=== PATIENT | male | born 1950 | race Caucasian/White ===

== ENCOUNTER 2016-07-20 12:42 | Emergency (ER) | payer OTHER ==
--- NOTE | 2016-07-20 12:51 | ED Physician Documentation ---
Hand Injury - HISTORIAN Historian: patient, spouse - HPI Stated Complaint: Hurt R hand Chief Complaint: Hand Injury Additional Information: 66 y/o R handed male M presents with R hand injury. Was pulling on a dent puller and hit a metal tool on the car he was working on. About .5-1 inch of the piece stuck in his hand - full piece came out. Not in pain. Minimal numbness along lateral side of pinky. Onset: just prior to arrival Where: home Severity: mild Context: laceration Location of Injury: R hand - ROS CONST: no problems - PAST HX Past History: Rt handed, other (Peripheral neuropathy; Prostate cancer; Nephrolithiasis) Immunizations: tetanus (Received 7 years ago), UTD Allergies/Adverse Reactions: Allergies Allergy/AdvReac Type Severity Reaction Status Date / Time No Known Allergies Allergy Unverified 07/20/16 12:57 Home Medications: Ambulatory Orders Medication Instructions Recorded Allopurinol [Zyloprim] 07/20/16 Aspirin [Ritu] 81 mg PO DAILY 07/20/16 Cholecalciferol (Vitamin D3) 07/20/16 [Vitamin D3] Fluticasone Propionate [Flonase 1 spray NS 07/20/16 Nasal [place]] Gabapentin [Neurontin] 100 mg PO TID 07/20/16 Quinapril HCl [Accupril] 40 mg PO 07/20/16 - SOCIAL HX Smoking History: non-smoker - FAMILY HX Family History: none Procedures Wound Location: other (R hand) Wound's Depth, Shape: other (circular puncture wound) Wound Explored: clean Irrigated w/ Saline (ccs): 30 Betadine Prep?: No (Hexadine used) Anesthesia: 1% Lidocaine Wound Repaired With: sutures (1 5-0 Nylon) Suture Size/Type: 5:0 Number of Sutures: 1 Hand Injury Physical Exam - Exam General Appearance: no acute distress Hand: other (Wound present on lateral side of R hand - about 0.75cm in length). No: limited ROM Neuro: sensation nml, motor nml Discharge Clincal Impression: Open wound, hand Qualifiers: Encounter type: initial encounter Laterality: right Qualified Code(s): S61.401A - Unspecified open wound of right hand, initial encounter Home Medications: Ambulatory Orders Allopurinol [Zyloprim] 07/20/16 Aspirin [Ritu] 81 mg PO DAILY 07/20/16 Cholecalciferol (Vitamin D3) [Vitamin D3] 07/20/16 Fluticasone Propionate [Flonase Nasal [place]] 1 spray NS 07/20/16 Gabapentin [Neurontin] 100 mg PO TID 07/20/16 Quinapril HCl [Accupril] 40 mg PO 07/20/16 Comments: Keep wound clean and dry. Dress with triple antibiotic ointment. Remove suture in 5-7 days. Condition: Stable Disposition: 01 HOME, SELF-CARE Decision to Admit: NO Date of Decison to Admit: 07/20/16 Decision Time: 13:24
[2016-07-20] MEDS: Lidocaine 1% 5ml(IM or SUTURE)(PAIN CLINIC) IJ ONE (13:10)
[2016-07-20] MEDS: DIPH,PERTUSS(ACELL),TET VAC/PF 0.5 ML DISP.SYRIN IM ONE (13:38)
[2016-07-20 13:41] VITALS: BP 140/81
== END 2016-07-20 13:40 | disposition home or self-care (01) ==
LOC: ED 12:42
DX: S61.401A Unspecified open wound of right hand, initial encounter (principal); X58.XXXA Exposure to other specified factors, initial encounter; Y93.9 Activity, unspecified; Y99.9 Unspecified external cause status
CPT/HCPCS: 12001; 90471; 90715; 99283